=== PATIENT | male | born 1950 ===

== ENCOUNTER 2017-04-17 07:32 | Day surgery (SDC) | payer BC ==
[2017-04-17] MEDS ORDERED: Lactated Ringer's 1,000 ML IV ONE (07:58)
[2017-04-17 08:14] VITALS: TEMP 96.8
[2017-04-17] MEDS ORDERED: Propofol 10 mg/ml Inj (20 ML) ONE (10:42)
[2017-04-17] MEDS ORDERED: Lidocaine 2% MPF (5 ml) Inj ONE (10:43)
[2017-04-17 11:30] VITALS: BP 124/73; PULSE 77; RESP 18; O2SAT 100
== END 2017-04-17 11:30 | disposition home or self-care (01) ==
LOC: H.ENDO 07:32
PROVIDERS: ATTEND Internal Medicine Gastroenterology
DX: Z12.11 Encounter for screening for malignant neoplasm of colon (principal); E11.9 Type 2 diabetes mellitus without complications; E78.5 Hyperlipidemia, unspecified; I10 Essential (primary) hypertension; D12.2 Benign neoplasm of ascending colon; K64.0 First degree hemorrhoids; K29.50 Unspecified chronic gastritis without bleeding; K30 Functional dyspepsia; K29.70 Gastritis, unspecified, without bleeding
CPT/HCPCS: 43239; 45380; 88305; J2704; J7120